=== PATIENT | female | born 1975 | race Caucasian/White ===

== ENCOUNTER 2018-09-24 15:36 | Emergency (ER) | payer BC, OTHER ==
[~2018-09-24] VITALS: Ht 152.4 cm; Wt 92.9 kg
[~2018-09-24 15:36] MED LIST: HYDR12.517
[2018-09-24 16:03] VITALS: BP 129/82
--- NOTE | 2018-09-24 16:05 | NUR ---
Late entry for 1605, patient adds that she is suicidal after triaged. Patient denies a plan, becomes tearful.
[2018-09-24] MEDS ORDERED: THIAMINE 100MG TABLET PO ONE (16:30)
[2018-09-24 16:34] LABS: BASOPHILS # (AUTO) 0.03 x10^3/uL (0-0.1); BASOPHILS % (AUTO) 0 % (0-1); EOSINOPHILS # (AUTO) 0.04 x10^3/uL (0-0.4); EOSINOPHILS % (AUTO) 0 % (1-7); LYMPHOCYTES % (AUTO) 33 % (22-44); MD NO; MEAN CORPUSCULAR HEMOGLOBIN 33.9 pg (27.0-34.8); MEAN CORPUSCULAR HGB CONC 34.2 g/dL (32.4-35.8); MEAN CORPUSCULAR VOLUME 99.2 fL (80-100); MEAN PLATELET VOLUME 8.3 fL (7.4-10.4); MONOCYTES # (AUTO) 0.58 x10^3/uL (0.2-0.8); MONOCYTES % (AUTO) 6 % (2-9); NEUTROPHILS # (AUTO) 6.23 x10^3/uL (1.8-6.8); NEUTROPHILS % (AUTO) 61 % (42-75); PLATELET COUNT 292 x10^3/uL (130-400); RED BLOOD COUNT 4.92 x10^6/uL (3.82-5.3); RED CELL DISTRIBUTION WIDTH 13.8 % (9.6-15.2)
[2018-09-24 16:47] LABS: ALBUMIN 3.7 g/dL (3.4-5.0); ANION GAP 9 mmol/L (5-15); CALCIUM 8.2 mg/dL (8.5-10.1); CHLORIDE 107 mmol/L (98-107); SALICYLATE LEVEL 3.9 mg/dL (2.8-20.0)
[2018-09-24 16:50] LABS: ALANINE AMINOTRANSFERASE 79 U/L (12-78); ALKALINE PHOSPHATASE 93 U/L (45-117); BILIRUBIN,TOTAL 0.3 mg/dL (0.2-1.0); CREATININE 0.85 mg/dL (0.55-1.02); TOTAL PROTEIN 7.9 g/dL (6.4-8.2)
[2018-09-24 16:51] LABS: ACETAMINOPHEN < 2 mcg/mL (10-30)
--- NOTE | 2018-09-24 16:57 | NUR ---
PT BELONGINGS REMOVED LABELED AND PLACED IN BELONGINGS COMPARTMENT, SI PRECAUTIONS PERFORMED
--- NOTE | 2018-09-24 17:03 | NUR ---
SITTER OUTSIDE DOOR
[2018-09-24 17:06] LABS: AMPHETAMINE SCREEN, URINE Negative (Negative); BARBITURATE SCREEN, URINE Negative (Negative); BENZODIAZEPINE SCREEN, URINE Negative (Negative); CANNABINOID SCREEN, URINE Negative (Negative); COCAINE SCREEN, URINE Negative (Negative); METHADONE SCREEN, URINE Negative (Negative); OPIATE SCREEN, URINE Negative (Negative)
[2018-09-24] MEDS ORDERED: THIAMINE 100MG TABLET ONE (17:47)
[2018-09-24] MEDS ORDERED: LORazepam 1MG TABLET ONE (17:48)
[2018-09-24] MEDS ORDERED: LORazepam 1MG TABLET PO ONE (18:00)
== END 2018-09-24 20:01 | disposition home or self-care (01) ==
LOC: ED 18:22
DX: F10.220 Alcohol dependence with intoxication, uncomplicated (principal); F41.1 Generalized anxiety disorder; R45.851 Suicidal ideations; I10 Essential (primary) hypertension
CPT/HCPCS: 36415; 80053; 80307; 80329; 83690; 84703; 85025; 99284; G0480